=== PATIENT | male | born 1990 ===

== ENCOUNTER 2018-04-23 08:15 | Emergency (ER) | payer SELFPAY ==
[2018-04-23] MEDS ORDERED: Sodium Chloride 0.9% 100 ML BAG ONE (08:20)
[2018-04-23] MEDS ORDERED: Sodium Chloride 0.9% 1,000 ML BAG ONE (08:20)
[2018-04-23] MEDS ORDERED: Ondansetron HCl/PF 4 MG/2 ML Vial ONE (08:42)
[2018-04-23] MEDS ORDERED: Morphine 4 MG/ML VIAL ONE (08:42)
[2018-04-23 08:55] LABS: #Basophils 0.1 thou/uL (0.0-0.2); #Eosinphils 0.1 thou/uL (0.0-0.7); #Monocytes 0.6 thou/uL (0.11-0.59); %Basophils 0.9 % (0.0-1.0); %Eosinophils 1.8 % (0.0-10.0); %Lymphocytes 30.1 % (21.0-51.0); %Monocytes 8.1 % (0.0-10.0); Hemoglobin 15.6 g/dL (14.0-18.0); Mean Corpuscular HGB CONC 33.7 g/dL (32.0-36.0); Mean Corpuscular Hemoglobin 29.2 pg (27.0-31.0); Mean Corpuscular Volume 86.7 fL (78.0-98.0); Mean Platelet Volume 8.8 fL (7.4-10.4); Platelet Count 221 thou/uL (130-400); RBC Distribution Width 11.3 % (11.5-14.5); Red Blood Cell (RBC) Count 5.33 mill/uL (4.70-6.10); White Blood Cell (WBC) Count 6.8 thou/uL (4.8-10.8)
[2018-04-23 09:20] LABS: ALT (SGPT) 32 U/L (8-55); AST (SGOT) 26 U/L (5-34); Albumin 4.6 g/dL (3.5-5.0); Alkaline Phosphatase 74 U/L (40-150); Anion Gap 18 mmol/L (10-20); BUN (Urea Nitrogen) 15 mg/dL (8.9-20.6); Bilirubin, Total 0.3 mg/dL (0.2-1.2); Calc. Creatinine Clearance 0 mL/min (70-130); Carbon Dioxide 19 mmol/L (22-29); Chloride 106 mmol/L (98-107); Estimated GFR-MDRD Greater than 90; Globulin 2.6 g/dL (2.4-3.5); Potassium 3.5 mmol/L (3.5-5.1); Protein, Total 7.2 g/dL (6.0-8.3); Sodium 139 mmol/L (136-145)
[2018-04-23 09:30] LABS: Glucose 105 mg/dL (70-105)
[2018-04-23] MEDS ORDERED: Iopamidol 370 76% 100 ML VIAL ONE (09:57)
[2018-04-23] MEDS ORDERED: ceFOXitin 1 GM VIAL ONE (10:05)
--- NOTE | 2018-04-23 10:21 | CT ---
CT ABDOMEN WITH CONTRAST CT PELVIS WITH CONTRAST: DATE: 04/23/18 TIME: 0935 HOURS HISTORY: 28-year-old male with periumbilical abdominal pain and guarding. COMPARISON: none TECHNIQUE: IV injection of iodinated contrast media: Administered. Oral contrast media: Not administered. FINDINGS: The appendix is fluid-filled and dilated up to 9 mm in caliber. It travels from the distal tip of the cecum anteriorly, in a position medial to the cecum, and anterior and inferior to the terminal ileum . There is mildly increased enhancement of the dunaway of the appendix. Minimal surrounding fat strandi ng. No free fluid or abscess. No pneumoperitoneum. No pathology is identified involving the colon, urinary bladder, small intestine, abdominal aorta, ki dneys, adrenals, pancreas, liver, spleen, or lung bases. IMPRESSION: Positive for acute appendicitis. COLLEEN POS: JAE
[2018-04-23 11:06] LABS: Bilirubin Negative (Negative); Blood, Urine Negative (Negative); Clarity Clear (Clear); Glucose, Urine (Dipstick) Negative (Negative); Leukocyte Negative (Negative); Nitrite Negative (Negative); Protein, Urine (Dipstick) Negative (Neg-Trace); Urobilinogen 0.2 mg/dL (0.2-1.0); pH, Urine 8.5 (5.0-9.0)
== END 2018-04-23 12:20 | disposition short-term general hospital (02) ==
LOC: MADERS 08:15
DX: K35.80 Unspecified acute appendicitis (principal); I45.10 Unspecified right bundle-branch block; F17.200 Nicotine dependence, unspecified, uncomplicated
CPT/HCPCS: 74177; 80053; 81003; 83605; 84484; 85025; 93005; 96361; 96365; 96375; J0694; J2270; J2405; J7050